=== PATIENT | male | born 1990 | race African-American/Black ===

== ENCOUNTER 2017-07-05 09:08 | Inpatient (IN) | payer MEDICAID ==
[~2017-07-05] VITALS: Ht 190.5 cm; Wt 97.0 kg
[2017-07-05] VITALS (7 sets, daily range): BP systolic 116–133; BP diastolic 65–91
[2017-07-05] MEDS ORDERED: ASPIRIN 81MG TABLET PO ONE (09:45)
[2017-07-05 10:23] LABS: BASOPHILS % 0.5 % (0.0-2.0); EOSINOPHILS % 4.6 % (0.0-5.0); HEMOGLOBIN. 16.6 g/dL (14.0-18.0); LYMPHOCYTES % 41.9 % (20.0-50.0); MEAN CORPUSCULAR HEMOGLOBIN 31.7 pg (28.0-32.0); MEAN CORPUSCULAR VOLUME 89.9 fL (80.0-94.0); MEAN PLATELET VOLUME 9.4 fl (7.4-10.4); MONOCYTES % 11.9 % (2.0-8.0); NEUTROPHILS % 41.1 % (40.0-76.0); PLATELET 191 x1000/uL (130-400); RED BLOOD CELL COUNT 5.23 mill/uL (4.7-6.1); RED CELL DISTRIBUTION WIDTH 12.3 % (11.6-14.6)
[2017-07-05 10:31] LABS: INR 1.1; PARTIAL THROMBOPLASTIN TIME 27.8 sec (23.4-31.0); PROTHROMBIN TIME 11.4 sec (9.4-11.6)
[2017-07-05 10:34] LABS: CARBON DIOXIDE 30 mEq/L (21-32); CHLORIDE 102 mEq/L (98-107)
[2017-07-05 10:40] LABS: CREATINE KINASE 128 IU/L (39-308)
[2017-07-05 10:41] LABS: TROPONIN I < 0.02 ng/mL (0.00-0.04)
[2017-07-05 10:46] LABS: CREATINE KINASE MB FRACTION 2.7 ng/mL (0.5-3.6)
[2017-07-05] MEDS ORDERED: DIPHENHYDRAMINE 50MG/ML VIAL IM PRN (18:30)
[2017-07-05] MEDS ORDERED: ACETAMINOPHEN 325MG TABLET PO PRN (18:30)
[2017-07-06] VITALS (13 sets, daily range): BP systolic 109–142; BP diastolic 58–84
[2017-07-06 07:45] LABS: HEMATOCRIT 47.3 % (42.0-52.0); HEMOGLOBIN 16.8 g/dL (14.0-18.0); MEAN CORPUSCULAR HEMOGLOBIN 31.6 pg (28.0-32.0); PLATELET 187 x1000/uL (130-400); RED BLOOD CELL COUNT 5.31 mill/uL (4.7-6.1)
[2017-07-06 08:14] LABS: CARBON DIOXIDE 28 mEq/L (21-32); CHLORIDE 100 mEq/L (98-107); TROPONIN I < 0.02 ng/mL (0.00-0.04)
[2017-07-06 14:19] LABS: T4 FREE 1.06 ng/dL (0.76-1.46)
[2017-07-06 15:42] LABS: CREATINE KINASE 87 IU/L (39-308); CREATINE KINASE MB FRACTION 1.7 ng/mL (0.5-3.6); TROPONIN I < 0.02 ng/mL (0.00-0.04)
[2017-07-06 23:02] LABS: CREATINE KINASE 86 IU/L (39-308); CREATINE KINASE MB FRACTION 1.5 ng/mL (0.5-3.6); TROPONIN I < 0.02 ng/mL (0.00-0.04)
[2017-07-07] VITALS (12 sets, daily range): BP systolic 110–135; BP diastolic 46–92
[2017-07-07 07:35] LABS: CREATINE KINASE 74 IU/L (39-308); CREATINE KINASE MB FRACTION 1.5 ng/mL (0.5-3.6); TROPONIN I < 0.02 ng/mL (0.00-0.04)
[2017-07-07] MEDS: METOPROLOL TARTRATE 25MG TABLET PO SCH ×2 (10:32→20:30)
[2017-07-08] VITALS (12 sets, daily range): BP systolic 93–134; BP diastolic 49–83
[2017-07-08] MEDS: METOPROLOL TARTRATE 25MG TABLET PO SCH ×2 (08:27→21:05)
[2017-07-08] MEDS: AMIODARONE HCL 200 MG TABLET PO SCH ×2 (12:15→17:14)
[2017-07-09] VITALS (12 sets, daily range): BP systolic 99–127; BP diastolic 54–77
[2017-07-09] MEDS: AMIODARONE HCL 200 MG TABLET PO SCH ×3 (06:51→17:17)
[2017-07-09] MEDS: METOPROLOL TARTRATE 25MG TABLET PO SCH ×2 (09:08→21:35)
[2017-07-09] MEDS ORDERED: ACETAMINOPHEN 650MG/20.3ML UDC GT PRN (17:15)
[2017-07-09] MEDS ORDERED: ACETAMINOPHEN 325MG TABLET PO PRN (17:15)
[2017-07-09] MEDS ORDERED: NA PHOS,M-B/NA PHOS,DI-BA ENEMA 118ML PR PRN (17:15)
[2017-07-09] MEDS ORDERED: DIPHENHYDRAMINE 50MG/ML VIAL IV PRN (17:15)
[2017-07-09] MEDS ORDERED: MAGNESIUM/ALUMINUM HYDROXIDE/SIMETHICONE 30ML UDC PO PRN (17:15)
[2017-07-09] MEDS ORDERED: ACETAMINOPHEN 650MG SUPP PR PRN (17:15)
[2017-07-09] MEDS ORDERED: CLONIDINE 0.1MG TABLET PO PRN (17:15)
[2017-07-09] MEDS ORDERED: IPRATROPIUM/ALBUTEROL 0.5-3(2.5)MG/3ML NEB INH PRN (17:15)
[2017-07-09] MEDS ORDERED: HYDROCODONE/ACETAMINOPHEN 5/325MG TABLET PO PRN (17:15)
[2017-07-09] MEDS: SODIUM CHLORIDE 0.9% INJ 3ML FLUSH IVF SCH (21:35)
[2017-07-10] VITALS (10 sets, daily range): BP systolic 96–117; BP diastolic 52–73
[2017-07-10] MEDS: SODIUM CHLORIDE 0.9% INJ 3ML FLUSH IVF SCH (05:39)
[2017-07-10 06:38] LABS: CHLORIDE 101 mEq/L (98-107)
[2017-07-10 06:44] LABS: CARBON DIOXIDE 27 mEq/L (21-32); HDL CHOLESTEROL 30 mg/dL (40-59); LDL CHOLESTEROL 64 mg/dL (5-100)
[2017-07-10 07:14] LABS: BASOPHILS % 0.3 % (0.0-2.0); EOSINOPHILS % 3.8 % (0.0-5.0); HEMATOCRIT. 43.5 % (42.0-52.0); HEMOGLOBIN. 15.4 g/dL (14.0-18.0); LYMPHOCYTES % 46.7 % (20.0-50.0); MEAN CORPUSCULAR HEMOGLOBIN 31.5 pg (28.0-32.0); MEAN CORPUSCULAR VOLUME 88.9 fL (80.0-94.0); MONOCYTES % 8.8 % (2.0-8.0); NEUTROPHILS % 40.4 % (40.0-76.0); PLATELET 200 x1000/uL (130-400); RED BLOOD CELL COUNT 4.89 mill/uL (4.7-6.1); RED CELL DISTRIBUTION WIDTH 12.2 % (11.6-14.6)
[2017-07-10] MEDS: AMIODARONE HCL 200 MG TABLET PO SCH ×2 (07:32→14:16)
[2017-07-10] MEDS: METOPROLOL TARTRATE 25MG TABLET PO SCH (08:28)
[2017-07-10] MEDS ORDERED: METO25TA6 PO (08:34)
[2017-07-10] MEDS ORDERED: AMI2 PO (08:34)
== END 2017-07-10 14:55 | disposition home or self-care (01) | DRG 201 ==
LOC: ER 09:38 → 3WST 10:13 → EDBEDREQ 14:50 → ENRESERV 14:53 → ER 15:52 → CANBEDREQ 16:04 → 3WST 07-07 13:51
PROVIDERS: ADMIT Family Medicine; ATTEND Family Medicine
DX: I47.2 Ventricular tachycardia (principal); I42.9 Cardiomyopathy, unspecified; I44.1 Atrioventricular block, second degree; I49.9 Cardiac arrhythmia, unspecified
CPT/HCPCS: 36415; 71010; 80048; 80053; 80061; 82550; 82553; 83036; 83690; 83735; 83880; 84132; 84439; 84443; 84484; 85025; 85027; 85379; 85610; 85730; 93005; 93017; 93306; 99285

== ENCOUNTER 2017-12-23 12:14 | Emergency (ER) | payer MEDICAID ==
[~2017-12-23] VITALS: Ht 190.5 cm; Wt 91.0 kg
[~2017-12-23 12:14] MED LIST: AMI2 PO; METO25TA6 PO
[2017-12-23 14:15] LABS: BASOPHILS % 0.4 % (0.0-2.0); EOSINOPHILS % 2.9 % (0.0-5.0); HEMATOCRIT. 46.5 % (42.0-52.0); HEMOGLOBIN. 16.1 g/dL (14.0-18.0); LYMPHOCYTES % 47.4 % (20.0-50.0); MEAN CORPUSCULAR HEMOGLOBIN 31.7 pg (28.0-32.0); MEAN CORPUSCULAR VOLUME 91.3 fL (80.0-94.0); MEAN PLATELET VOLUME 9.5 fl (7.4-10.4); MONOCYTES % 9.8 % (2.0-8.0); NEUTROPHILS % 39.5 % (40.0-76.0); PLATELET 189 x1000/uL (130-400); RED BLOOD CELL COUNT 5.09 mill/uL (4.7-6.1); RED CELL DISTRIBUTION WIDTH 12.3 % (11.6-14.6)
[2017-12-23 14:17] LABS: INR 1.1; PROTHROMBIN TIME 11.8 sec (9.4-11.6)
[2017-12-23 14:22] LABS: CHLORIDE 104 mEq/L (98-107)
[2017-12-23 14:29] LABS: TROPONIN I < 0.02 ng/mL (0.00-0.04)
[2017-12-23 15:10] VITALS: BP 121/75
== END 2017-12-23 15:55 | disposition home or self-care (01) ==
LOC: ER 15:51
DX: R00.2 Palpitations (principal); R07.9 Chest pain, unspecified
CPT/HCPCS: 36415; 71045; 80053; 83880; 84484; 85025; 85610; 93005; 99285; Z7610

== ENCOUNTER 2018-05-09 15:07 | Emergency (ER) | payer MEDICAID ==
[~2018-05-09] VITALS: Ht 190.5 cm; Wt 90.0 kg
[2018-05-09 16:02] VITALS: BP 128/84
== END 2018-05-09 19:23 | disposition home or self-care (01) ==
LOC: ER 16:58
DX: M25.531 Pain in right wrist (principal); I51.9 Heart disease, unspecified
CPT/HCPCS: 29125; 73110; 99284

== ENCOUNTER 2020-02-22 08:22 | Emergency (ER) | payer MEDICAID ==
[~2020-02-22] VITALS: Ht 190.5 cm; Wt 98.0 kg
[2020-02-22 08:30] VITALS: BP 173/82
[2020-02-22 09:26] LABS: CLARITY URINE CLEAR (CLEAR); COLOR URINE YELLOW (YELLOW); KETONES URINE NEGATIVE (NEGATIVE); LEUKOCYTE ESTERASE URINE NEGATIVE (NEGATIVE); NITRITE URINE NEGATIVE (NEGATIVE); OCCULT BLOOD URINE NEGATIVE (NEGATIVE); PH URINE 5.5 (4.5-8.0); PROTEIN URINE NEGATIVE (NEGATIVE); SPECIFIC GRAVITY URINE 1.022 (1.005-1.030); UROBILINOGEN URINE 0.2 E.U./dL (0.2-1.0)
== END 2020-02-22 09:42 | disposition home or self-care (01) ==
LOC: ER 08:22
DX: R30.0 Dysuria (principal); I51.9 Heart disease, unspecified; I10 Essential (primary) hypertension
CPT/HCPCS: 81003; 99283

== ENCOUNTER 2020-05-23 16:28 | Emergency (ER) | payer MEDICAID ==
[~2020-05-23] VITALS: Ht 190.5 cm; Wt 94.0 kg
[2020-05-23 17:06] VITALS: BP 149/94
== END 2020-05-23 17:07 | disposition home or self-care (01) ==
LOC: ER 16:28
DX: Z20.6 Contact with and (suspected) exposure to human immunodeficiency virus [HIV] (principal); I11.9 Hypertensive heart disease without heart failure
CPT/HCPCS: 99281

== ENCOUNTER 2020-11-06 13:04 | Emergency (ER) | payer MEDICAID ==
[~2020-11-06] VITALS: Ht 190.5 cm; Wt 93.0 kg
[2020-11-06] MEDS ORDERED: ACETAMINOPHEN WITH CODEINE 300/30MG TABLET PO ONE (13:30)
[2020-11-06] MEDS ORDERED: LIDOCAINE HCL/PF 1% 10 MG/ML 5ML VIAL IJ ONE (13:45)
[2020-11-06 14:20] VITALS: BP 113/73
== END 2020-11-06 14:49 | disposition home or self-care (01) ==
LOC: ER 13:04
DX: S62.627A Displaced fracture of middle phalanx of left little finger, initial encounter for closed fracture (principal); M20.012 Mallet finger of left finger(s); I51.9 Heart disease, unspecified; Z79.899 Other long term (current) drug therapy; W23.0XXA Caught, crushed, jammed, or pinched between moving objects, initial encounter; Y93.61 Activity, american tackle football; Y92.89 Other specified places as the place of occurrence of the external cause; Y99.8 Other external cause status
CPT/HCPCS: 26770; 73140; 99284; J3490; Z7610

== ENCOUNTER 2021-02-05 17:48 | Emergency (ER) | payer MEDICAID ==
[~2021-02-05] VITALS: Ht 190.5 cm; Wt 95.0 kg
[2021-02-05] MEDS ORDERED: HYDROCODONE/ACETAMINOPHEN 5/325MG TABLET PO ONE (18:45)
[2021-02-05] MEDS ORDERED: IBUPROFEN 400MG TABLET PO ONE (18:45)
[2021-02-05] MEDS ORDERED: IBUP-2028 MT (19:45)
[2021-02-05] MEDS ORDERED: HYDR-4001 MT (19:45)
[2021-02-05 20:34] VITALS: BP 130/68
== END 2021-02-05 20:35 | disposition home or self-care (01) ==
LOC: ER 17:48
DX: S86.012A Strain of left Achilles tendon, initial encounter (principal); W18.39XA Other fall on same level, initial encounter; Y93.61 Activity, american tackle football; Y92.89 Other specified places as the place of occurrence of the external cause; Y99.8 Other external cause status; I10 Essential (primary) hypertension; Z79.899 Other long term (current) drug therapy
CPT/HCPCS: 29505; 73610; 99283; Z7610

== ENCOUNTER 2022-04-17 02:29 | Emergency (ER) | payer MEDICAID ==
[~2022-04-17] VITALS: Ht 190.5 cm; Wt 98.0 kg
[~2022-04-17 02:29] MED LIST changes: +HYDR-4001 MT; +IBUP-2028 MT
[2022-04-17 02:35] VITALS: BP 140/85
[2022-04-17 04:13] LABS: BASOPHILS % 0.3 % (0.0-2.0); EOSINOPHILS % 4.4 % (0.0-5.0); HEMOGLOBIN. 14.8 g/dL (14.0-18.0); LYMPHOCYTES % 66.2 % (20.0-50.0); MEAN CORPUSCULAR HEMOGLOBIN 30.8 pg (28.0-32.0); MEAN CORPUSCULAR VOLUME 89.4 fL (80.0-94.0); MEAN PLATELET VOLUME 9.1 fl (7.4-10.4); MONOCYTES % 10.1 % (2.0-8.0); PLATELET 196 x1000/uL (130-400); RED BLOOD CELL COUNT 4.81 mill/uL (4.7-6.1); RED CELL DISTRIBUTION WIDTH 12.4 % (11.6-14.6)
[2022-04-17 04:20] LABS: CHLORIDE 104 mEq/L (98-107)
[2022-04-17] MEDS ORDERED: IBUP-2029 MT (05:02)
[2022-04-17] MEDS ORDERED: DOXY-326 MT (05:02)
== END 2022-04-17 05:25 | disposition home or self-care (01) ==
LOC: ER 02:29
DX: J40 Bronchitis, not specified as acute or chronic (principal); I10 Essential (primary) hypertension
CPT/HCPCS: 36415; 71045; 80053; 84484; 85025; 85379; 93005; 99285

== ENCOUNTER 2022-08-31 19:56 | Emergency (ER) | payer MEDICAID ==
[~2022-08-31] VITALS: Ht 190.5 cm; Wt 102.0 kg
[~2022-08-31 19:56] MED LIST changes: +DOXY-326 MT; +IBUP-2029 MT
[2022-09-01 00:29] LABS: BASOPHILS % 0.3 % (0.0-2.0); EOSINOPHILS % 2.4 % (0.0-5.0); HEMATOCRIT. 40.3 % (42.0-52.0); HEMOGLOBIN. 14.2 g/dL (14.0-18.0); LYMPHOCYTES % 29.1 % (20.0-50.0); MEAN CORPUSCULAR HEMOGLOBIN 31.5 pg (28.0-32.0); MEAN CORPUSCULAR VOLUME 89.7 fL (80.0-94.0); MEAN PLATELET VOLUME 8.2 fl (7.4-10.4); MONOCYTES % 9.5 % (2.0-8.0); NEUTROPHILS % 58.7 % (40.0-76.0); PLATELET 231 x1000/uL (130-400); RED CELL DISTRIBUTION WIDTH 12.2 % (11.6-14.6)
[2022-09-01 00:34] LABS: CLARITY URINE CLOUDY (CLEAR); COLOR URINE YELLOW (YELLOW); KETONES URINE NEGATIVE (NEGATIVE); LEUKOCYTE ESTERASE URINE 2+ (NEGATIVE); NITRITE URINE NEGATIVE (NEGATIVE); OCCULT BLOOD URINE 3+ (NEGATIVE); PH URINE 5.5 (4.5-8.0); PROTEIN URINE 2+ (NEGATIVE); SPECIFIC GRAVITY URINE 1.022 (1.005-1.030); UROBILINOGEN URINE 0.2 E.U./dL (0.2-1.0)
[2022-09-01 00:36] LABS: CHLORIDE 100 mEq/L (98-107)
[2022-09-01] MEDS ORDERED: CEFTRIAXONE SODIUM 1 G/VIAL IM ONE (02:00)
[2022-09-01] MEDS ORDERED: CEFP200T13 MT (02:18)
[2022-09-01 03:46] VITALS: BP 124/78
[2022-09-05 04:11] LABS: NEISSERIA GONORRHOEAE NAA Negative (Negative)
== END 2022-09-01 03:47 | disposition home or self-care (01) ==
LOC: ER 19:56
DX: N39.0 Urinary tract infection, site not specified (principal); I10 Essential (primary) hypertension; I49.9 Cardiac arrhythmia, unspecified
CPT/HCPCS: 36415; 74176; 80053; 81003; 85025; 87077; 87086; 87186; 87491; 87591; 96372; 99284; J0696

== ENCOUNTER 2022-12-30 22:29 | Emergency (ER) | payer MEDICAID ==
[~2022-12-30] VITALS: Ht 190.5 cm; Wt 99.0 kg
[~2022-12-30 22:29] MED LIST changes: +CEFP200T13 MT
[2022-12-30 22:30] VITALS: BP 137/81
[2022-12-31] MEDS ORDERED: IBUPROFEN 600MG TABLET PO STA (01:12)
[2022-12-31] MEDS ORDERED: NAPR-681 PO (03:04)
== END 2022-12-31 03:25 | disposition home or self-care (01) ==
LOC: ER 22:44
DX: L72.8 Other follicular cysts of the skin and subcutaneous tissue (principal); J03.90 Acute tonsillitis, unspecified; R07.0 Pain in throat; I49.9 Cardiac arrhythmia, unspecified; H40.9 Unspecified glaucoma
CPT/HCPCS: 87070; 87430; 99283

== ENCOUNTER 2023-05-14 03:45 | Emergency (ER) | payer BC, MEDICAID ==
[~2023-05-14] VITALS: Ht 190.5 cm; Wt 99.3 kg
[~2023-05-14 03:45] MED LIST changes: -DOXY-326 MT; +DOXY-456 MT; +NAPR-681 PO
[2023-05-14 03:58] VITALS: O2SAT 100
[2023-05-14] MEDS ORDERED: AMOX125S12 MT (05:13)
[2023-05-14] MEDS ORDERED: NAPR275T96 MT (05:14)
[2023-05-14 05:29] VITALS: BP 127/83
[2023-05-14 05:30] VITALS: PULSE 89; RESP 16; TEMP 98.3
[2023-05-14] MEDS ORDERED: KETOROLAC 30MG/ML VIAL IM ONE (05:30)
== END 2023-05-14 05:31 | disposition home or self-care (01) ==
LOC: ER 03:45
DX: H66.91 Otitis media, unspecified, right ear (principal); Z79.899 Other long term (current) drug therapy
CPT/HCPCS: 96372; 99283; J1885; Z7610